=== PATIENT | male | born 1960 | race Caucasian/White ===

== ENCOUNTER 2020-12-28 16:24 | Outpatient (CLI) | payer BC ==
[2020-12-29 01:17] LABS: SARS-CoV-2 PCR by NAA Not Detected (NotDetected)
== END 2020-12-28 16:25 | disposition home or self-care (01) ==
LOC: CSHLAB 16:24
PROVIDERS: ATTEND Internal Medicine Gastroenterology
DX: Z20.822 Contact with and (suspected) exposure to COVID-19 (principal); Z12.11 Encounter for screening for malignant neoplasm of colon
CPT/HCPCS: 87635; U0003; U0005

== ENCOUNTER 2020-12-30 11:50 | Day surgery (SDC) | payer BC, OTHER ==
[2020-12-29 13:09] VITALS: BMI 37.3
[2020-12-30] MEDS ORDERED: Lidocaine 1% MPF 2 ML VIAL ONE (12:11)
[2020-12-30] MEDS ORDERED: PROPOFOL 40 ML ONE (13:05)
[2020-12-30] MEDS ORDERED: Lidocaine 1% PF 5 ML VIAL ONE (13:07)
[2020-12-30] MEDS ORDERED: PROPOFOL 20 ML ONE (13:33)
== END 2020-12-30 14:30 | disposition home or self-care (01) ==
LOC: CSHSDC 11:50
PROVIDERS: ATTEND Internal Medicine Gastroenterology
PROC: 0DJD8ZZ Inspection of Lower Intestinal Tract, Via Natural or Artificial Opening Endoscopic (ICD-10-PCS; principal; 2020-12-30)
DX: Z12.11 Encounter for screening for malignant neoplasm of colon (principal); I10 Essential (primary) hypertension; M10.9 Gout, unspecified; M19.90 Unspecified osteoarthritis, unspecified site; E78.5 Hyperlipidemia, unspecified; E66.9 Obesity, unspecified; Z68.37 Body mass index [BMI] 37.0-37.9, adult; Z79.1 Long term (current) use of non-steroidal anti-inflammatories (NSAID); Z79.899 Other long term (current) drug therapy; Z88.0 Allergy status to penicillin
CPT/HCPCS: J2704